=== PATIENT | male | born 1955 | race Caucasian/White ===

== ENCOUNTER 2020-02-10 19:07 | Inpatient (IN) ==
[2020-02-10 19:25] VITALS: BMI 29.0
[2020-02-10] MEDS ORDERED: NS 1000 ML 1,000 ML IV ONE (19:44)
[2020-02-10] MEDS ORDERED: SOLU-Medrol 125 MG VIAL IVP ONE (19:44)
[2020-02-10] MEDS ORDERED: NS 1000 ML 1,000 ML ONE ×2 (19:51→21:46)
[2020-02-10] MEDS ORDERED: SOLU-Medrol 125 MG VIAL ONE (20:03)
--- NOTE | 2020-02-10 20:03 | DR.URIAD ---
HPI Time Seen Time Seen by Provider: 02/10/20 19:28 PCP Primary Care Physician: LYNETTE PENG GA Complaint Chief Complaint Doctors Comments: A 64 y/o male presenting with SOB x 5-6 weeks. He states this is worsening and he is not getting good sleep. He has associated cough that is productive, chest muscle soreness from coughing, fever. He is been taking care of by the [facility] and they. had him on oral Z-Pack and steroids. He went to the ED at [facility] within this time frame and was treated on outpt. basis. He has dyspnea with mild exertion. He was tested for FLU + a CXR. Chief Complaint:: APPROX 5 WEEKS AGO, STARTED WITH A HEAD COLD, SYMPTOMS PROGRESSIVELY GETTING WORSE, AND HAS MOVED TO CHEST. PATIENT ADMITS TO LOW GRADE FEVER; PATIENT HAS BEEN ON 2 DIFFERENT ANTIBIOTICS AND STEROID PACK. CONSTANT COUGH WITH CHEST PAIN COVID-19 Coronavirus risk:travel/contact w/high risk person: No Has patient experienced Coronavirus symptoms: Yes Coronavirus symptoms experienced: Fever, Coughing and Shortness of Breath Reviewed Nurses Notes Reviewed: Yes Source History Provided: Patient Mode of Arrival Mode of Arrival: Ambulatory Timing Onset of Chief Complaint: 02/03/20 Context Recent Treated Infections: None History of Respiratory: Steroid Use Quality Quality of Cough: Productive Rhinorrhea: None Shortness of Breath: Moderate Associated Signs and Symptoms Other Signs and Symptoms: Shortness of Breath PMH PMH Past Medical History: Yes Past Medical History: Asthma, COPD and CVA Past Medical History Comment: EMPHYSEMA, CVA X 3 YEARS AGO Past Surgical History: No Family History History of Family Medical Conditions: No Social History Alcohol Use: None Do you use any recreational Drugs:: No Lives With: Alone Lives Where: Home Infectious screening In the last 2 months have you had wt loss of >10#?: NO Have you had fever, night sweats or hemotysis?: No Have you traveled outside the country in the last 6 months?: No Isolation: Standard ROS Review of Systems Constitutional: Fever Eyes: No Symptoms Reported ENTM: No Symptoms Reported Respiratoy: Productive Cough and Short of Breath Cardiovascular: No Symptoms Reported Gastrointestinal/Abdominal: No Symptoms Reported Genitourinary: No Symptoms Reported Neurological: No Symptoms Reported Musculoskeletal: No Symptoms Reported Integumentary: No Symptoms Reported Hematologic/Lymphatic: No Symptoms Reported Endocrine: No Symptoms Reported Psychiatric: No Symptoms Reported All Other Systems: Reviewed and Negative PE Vital Signs Vitals: Temperature 98.0 F Pulse Rate 77 Respiratory Rate 24 Blood Pressure 151/72 O2 Sat by Pulse Oximetry 89 General Limitations: No Limitations General Appearance: Alert and In No Apparent Distress Head Head Exam: Normal Inspection, Atraumatic and Normocephalic Eyes Eye exam: Normal Appearance and EOMI ENT ENT Exam: Normal Exam, Normal Oropharynx, Normal External Ear Exam and Mucous Membranes Moist Neck Neck Exam: Normal Inspection, Full ROM and Trachea Midline Chest Chest Inspection: Normal Inspection and Symmetric Chest Wall Rise Respiratory Respiratory Exam: Normal Lung Sounds Bilat Cardiovascular Cardiovascular Exam: Regular Rate, Normal Rhythm, Normal Heart Sounds, +S1 and +S2 Abdominal Exam Abdominal Exam: Normal Inspection, Normal Bowel Sounds and Soft Extremeties Extremities Exam: Normal Inspection and Full ROM Back Back Exam: Normal Inspection and Full ROM Neurologic Neurological Exam: Alert and Oriented X3 Psychiatric Psychiatric Exam: Normal Affect and Normal Mood Skin Skin Exam: Dry and Intact COURSE Reevaluation 1st: Unchanged Education/Counseling Education/Counseling: Patient, Education and Counseling Educated On: Treatment, Diagnosis, Prognosis and Needs for Follow Up ROR Labs Reviewed Laboratory Results Reviewed?: Yes Result Diagrams: 02/10/20 20:04 02/10/20 20:04 Laboratory: WBC 7.3 X10^3/uL (3.6-10.0) 02/10/20 20:04 RBC 5.73 X10^6/uL (4.7-6.0) 02/10/20 20:04 Hgb 15.6 g/dL (13.5-18.0) 02/10/20 20:04 Hct 45.8 % (42.0-54.0) 02/10/20 20:04 MCV 80.0 fL (80.0-100.0) 02/10/20 20:04 MCH 27.2 pg (27.0-34.0) 02/10/20 20:04 MCHC 34.0 g/dL (33.0-35.0) 02/10/20 20:04 RDW 15.3 % (11.6-16.5) 02/10/20 20:04 Plt Count 200 X10^3/uL (150.0-450.0) 02/10/20 20:04 MPV 6.9 fL (7.4-11.0) L 02/10/20 20:04 Neut % (Auto) 64.0 % (42.0-75.0) 02/10/20 20:04 Lymph % (Auto) 27.2 % (21.0-51.0) 02/10/20 20:04 [place] % (Auto) 6.4 % (0.0-13.0) 02/10/20 20:04 Eos % (Auto) 2.1 % (0.9-2.9) 02/10/20 20:04 Baso % (Auto) 0.3 % (0.2-1.0) 02/10/20 20:04 Neut # (Auto) 4.7 x10^3/uL (2.2-4.8) 02/10/20 20:04 Lymph # (Auto) 2.0 X10^3/uL (1.3-2.9) 02/10/20 20:04 [place] # (Auto) 0.5 x10^3/uL (0.3-0.8) 02/10/20 20:04 Eos # (Auto) 0.2 x10^3/uL (0.0-0.2) 02/10/20 20:04 Baso # (Auto) 0.0 X10^3/uL (0.0-0.1) 02/10/20 20:04 Absolute Nucleated RBC 0.0 /100WBC 02/10/20 20:04 Sodium 138 mmol/L (136-145) 02/10/20 20:04 Corrected Sodium TNP 02/10/20 20:04 Potassium 4.1 mmol/L (3.5-5.1) 02/10/20 20:04 Chloride 103 mmol/L (98-107) 02/10/20 20:04 Carbon Dioxide 27.8 mmol/L (21-32) 02/10/20 20:04 BUN 17 mg/dL (7-18) 02/10/20 20:04 Creatinine 1.03 mg/dL (0.70-1.30) 02/10/20 20:04 Est GFR (MDRD) Af Amer > 60 (>60) 02/10/20 20:04 Est GFR (MDRD) Non-Af > 60 (>60) 02/10/20 20:04 Glucose 108 mg/dL (65-99) H 02/10/20 20:04 Calcium 8.7 mg/dL (8.5-10.1) 02/10/20 20:04 Corrected Calcium TNP 02/10/20 20:04 Total Bilirubin 0.50 mg/dL (0.2-1.0) 02/10/20 20:04 AST 20 Units/L (15-37) 02/10/20 20:04 ALT 45 Units/L (12-78) 02/10/20 20:04 Alkaline Phosphatase 81 Units/L (46-116) 02/10/20 20:04 Total Protein 6.9 g/dL (6.4-8.2) 02/10/20 20:04 Albumin 3.8 g/dL (3.4-5.0) 02/10/20 20:04 Globulin 3.1 g/dL (2.5-4.5) 02/10/20 20:04 Albumin/Globulin Ratio 1.2 Ratio (1.1-2.1) 02/10/20 20:04 Influenza Type A (PCR) Negative (NEGATIVE) 02/10/20 20:14 Influenza Type B (PCR) Negative (NEGATIVE) 02/10/20 20:14 Opioid Opioid Risk Tool Total: 0 Total Score Risk Category: Low Risk Copyright: Gutierrez THOMPSON predicting aberrant behaviors Diagnosis Discharge Problem: COPD with acute exacerbation Pneumonia Qualifiers: Pneumonia type: due to unspecified organism Laterality: right Lung location: lower lobe of lung Qualified Code(s): J18.9 - Pneumonia, unspecified organism Instructions Forms: Excuse From Work Precautions for COVID19 Patient Portal Social Distancing ADDITIONAL NOTES Additional Notes Additional Notes: [id number] 1955 Sex: M Location: ER Order Number(s): [id number] Procedure(s):CHEST, 1 VIEW Ordering Physician: CANDE VELAZQUEZ Primary Care: Douglas Connelly Service Date: 02/10/20 Service Time: 1927 HISTORY DYSPNEA STUDY CHEST, 1 VIEW COMPARISON None FINDINGS There is reticular opacity of the right lung base. The right upper lung and left lung are essentially clear. No significant pleural effusion or pneumothorax. Emphysematous changes of the upper lobes are noted. The heart size is normal. IMPRESSION Right basilar reticular opacities suggesting infiltrate versus atelectasis. Emphysema. Electronically signed by: ANNMARIE JACOBSON (Feb 10, 2020 20:05:53)
--- NOTE | 2020-02-10 20:07 | RAD ---
HISTORYDYSPNEASTUDYCHEST, 1 VIEWCOMPARISONNoneFINDINGSThere is reticular opacity of the right lung base. The right upper lung and left lung are essentially clear. No significant pleural effusion or pneumothorax. Emphysematous changes of the upper lobes are noted. The heart size is normal.IMPRESSIONRight basilar reticular opacities suggesting infiltrate versus atelectasis.Emphysema.Electronically signed by: ANNMARIE JACOBSON (Feb 10, 2020 20:05:53)
[2020-02-10 20:15] LABS: BASOPHILS % (AUTO) 0.3 % (0.2-1.0); EOSINOPHILS # (AUTO) 0.2 x10^3/uL (0.0-0.2); EOSINOPHILS % (AUTO) 2.1 % (0.9-2.9); HEMATOCRIT 45.8 % (42.0-54.0); HEMOGLOBIN 15.6 g/dL (13.5-18.0); LYMPHOCYTES % (AUTO) 27.2 % (21.0-51.0); MEAN CORPUSCULAR HEMOGLOBIN 27.2 pg (27.0-34.0); MEAN PLATELET VOLUME 6.9 fL (7.4-11.0); MONOCYTES # (AUTO) 0.5 x10^3/uL (0.3-0.8); MONOCYTES % (AUTO) 6.4 % (0.0-13.0); NEUTROPHILS # (AUTO) 4.7 x10^3/uL (2.2-4.8); PLATELET COUNT 200 X10^3/uL (150.0-450.0); RED BLOOD COUNT 5.73 X10^6/uL (4.7-6.0); RED CELL DISTRIBUTION WIDTH 15.3 % (11.6-16.5); WHITE BLOOD COUNT 7.3 X10^3/uL (3.6-10.0)
[2020-02-10 20:25] LABS: ALANINE AMINOTRANSFERASE 45 Units/L (12-78); ALBUMIN 3.8 g/dL (3.4-5.0); ALKALINE PHOSPHATASE 81 Units/L (46-116); ASPARTATE AMINO TRANSFERASE 20 Units/L (15-37); BLOOD UREA NITROGEN 17 mg/dL (7-18); CALCIUM 8.7 mg/dL (8.5-10.1); CARBON DIOXIDE 27.8 mmol/L (21-32); CHLORIDE 103 mmol/L (98-107); CREATININE 1.03 mg/dL (0.70-1.30); SODIUM 138 mmol/L (136-145); TOTAL PROTEIN 6.9 g/dL (6.4-8.2); eGFR NON BLACK RACES > 60 (>60)
[2020-02-10] MEDS ORDERED: TORADOL 30 MG VIAL IVP ONE (20:48)
[2020-02-10] MEDS ORDERED: TORADOL 30 MG VIAL ONE (20:50)
[2020-02-10] MEDS ORDERED: LEVAQUIN PREMIX IV 750 MG 750 MG/150 ML BAG IV ONE ×2 (21:31→21:47)
[2020-02-10] MEDS ORDERED: PATIENT'S HOME MEDICATION (Ranitidine Hcl 300 MG) PO SCH (22:15)
[2020-02-10] MEDS ORDERED: PROVENTIL NEB TX 0.083% 2.5MG/ 3ML IN PRN (23:01)
[2020-02-10] MEDS ORDERED: VENTOLIN or PROAIR HFA ONE (23:15)
[2020-02-10] MEDS: DESYREL PO SCH (23:30)
[2020-02-10] MEDS: ZANTAC PO SCH (23:30)
[2020-02-10] MEDS: FLOMAX PO SCH (23:30)
[2020-02-10] MEDS: NS 1000 ML 1,000 ML IV SCH (23:30)
[2020-02-11] MEDS ORDERED: PROVENTIL NEB TX 0.083% 2.5MG/ 3ML NEB SCH (01:00)
[2020-02-11 05:47] LABS: BASOPHILS % (AUTO) 0.3 % (0.2-1.0); HEMATOCRIT 43.1 % (42.0-54.0); HEMOGLOBIN 14.5 g/dL (13.5-18.0); LYMPHOCYTES % (AUTO) 15.4 % (21.0-51.0); MEAN CORPUSCULAR HEMOGLOBIN 27.3 pg (27.0-34.0); MEAN CORPUSCULAR HGB CONC 33.7 g/dL (33.0-35.0); MEAN CORPUSCULAR VOLUME 80.9 fL (80.0-100.0); MEAN PLATELET VOLUME 7.8 fL (7.4-11.0); MONOCYTES # (AUTO) 0.1 x10^3/uL (0.3-0.8); MONOCYTES % (AUTO) 0.9 % (0.0-13.0); NEUTROPHILS # (AUTO) 5.4 x10^3/uL (2.2-4.8); NEUTROPHILS % (AUTO) 83.4 % (42.0-75.0); PLATELET COUNT 178 X10^3/uL (150.0-450.0); RED BLOOD COUNT 5.32 X10^6/uL (4.7-6.0); RED CELL DISTRIBUTION WIDTH 15.2 % (11.6-16.5); WHITE BLOOD COUNT 6.5 X10^3/uL (3.6-10.0)
[2020-02-11 05:52] LABS: ALANINE AMINOTRANSFERASE 36 Units/L (12-78); ALBUMIN 3.2 g/dL (3.4-5.0); ALKALINE PHOSPHATASE 75 Units/L (46-116); ASPARTATE AMINO TRANSFERASE 11 Units/L (15-37); BLOOD UREA NITROGEN 17 mg/dL (7-18); CALCIUM 8.5 mg/dL (8.5-10.1); CARBON DIOXIDE 24.3 mmol/L (21-32); CHLORIDE 104 mmol/L (98-107); COR CA(FOR HYPOALB) 9.1 mg/dL (8.5-10.1); COR NA(FOR HYPERGLY) 141 mmol/L (136-145); CREATININE 1.16 mg/dL (0.70-1.30); SODIUM 137 mmol/L (136-145); eGFR NON BLACK RACES > 60 (>60)
[2020-02-11 06:04] LABS: TOTAL PROTEIN 6.2 g/dL (6.4-8.2)
[2020-02-11] MEDS ORDERED: MORPHINE SULFATE INJ 4 MG IVP ONE (08:42)
[2020-02-11] MEDS ORDERED: PROVENTIL NEB TX 0.083% 2.5MG/ 3ML IN PRN (09:00)
[2020-02-11] MEDS ORDERED: PULMICORT NEB TX 0.5 MG NEB SCH (09:00)
[2020-02-11] MEDS ORDERED: LEVAQUIN PREMIX IV 750 MG 750 MG/150 ML BAG IV SCH (09:00)
--- NOTE | 2020-02-11 09:29 | DR.H&P ---
H&P History & Physical for Day of: H&P Date: 02/11/20 Chief Complaint Chief Complaint: Shortness of breath Allergies Allergies Allergy/AdvReac Type Severity Reaction Status Date / Time codeine Allergy Verified 02/10/20 19:25 History of Present Illness History of Present Illness: Pt is a 64 yo m pmhx HTN, Afib, COPD, presenting with shortness of breath that started 5-6 weeks ago and has progressively been worsening. He reports fevers, chills, productive cough. 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 He does use nebulizer at home and has oxygen that he takes intermittently for shortness of breath up to 4L. He was treated at [facility] with Z-pack and steroids. When sx did not resolve he went to ED at [facility] and was prescribed Cefdinir. VS 154/76, P 76, RR 20, 98F, O2 97% on 2L nc. Labs/Imaging: CXR:Right basilar reticular opacities suggesting infiltrate versus atelectasis. Emphysema. Wbc 6.5, Hgb 14.5, Plt 178, Na 141, K 4.4, Cl 104, HCO3 24, Cr 1.16, Gluc 282, CRP 0.5, D-dimer <100, Ferritin 27. Flu negative, Bloodcx/Covid pending. Pt was given Levaquin, will change patient to Rocephin and Doxycyline. Continue pneumonia protocol, albuterol inh, supplemental oxygen, IV solumedrol. Will continue to monitor and follow up labs in the morning. Past Medical History Past Medical History: Asthma, COPD and CVA Family History Family Medical History: Cancer, [place] and Coronary Artery Disease Social History Does patient currently use any type of tobacco product: No Have you used tobacco products in the last 12 months: No Type of Tobacco Use: None How many years tobacco product used: 30 Does any household member use tobacco: No Alcohol Use: None Drug Use: None Medications Home Medications: codeine Allergy (Verified 02/10/20 19:25) CONTINUE taking the following medications apixaban 5 mg PO BID 02/10/20 [History] buspirone 10 mg PO BID 02/10/20 [History] cefdinir 300 mg PO BID 02/10/20 [History] diclofenac sodium [Diclo Gel] 4 g TOPICAL BID 02/10/20 [History] oxycodone [OxyContin] 5 mg PO BID 02/10/20 [History] pantoprazole 40 mg PO QAM 02/10/20 [History] ranitidine HCl 300 mg PO QHS 02/10/20 [History] rosuvastatin [Crestor] 20 mg PO HS 02/10/20 [History] tamsulosin 0.4 mg PO QHS 02/10/20 [History] trazodone 50 mg PO QHS 02/10/20 [History] Labs Result Diagrams: 02/11/20 04:54 02/11/20 04:54 Labs: Laboratory WBC 6.5 X10^3/uL (3.6-10.0) 02/11/20 04:54 RBC 5.32 X10^6/uL (4.7-6.0) 02/11/20 04:54 Hgb 14.5 g/dL (13.5-18.0) 02/11/20 04:54 Hct 43.1 % (42.0-54.0) 02/11/20 04:54 MCV 80.9 fL (80.0-100.0) 02/11/20 04:54 MCH 27.3 pg (27.0-34.0) 02/11/20 04:54 MCHC 33.7 g/dL (33.0-35.0) 02/11/20 04:54 RDW 15.2 % (11.6-16.5) 02/11/20 04:54 Plt Count 178 X10^3/uL (150.0-450.0) 02/11/20 04:54 MPV 7.8 fL (7.4-11.0) 02/11/20 04:54 Neut % (Auto) 83.4 % (42.0-75.0) H 02/11/20 04:54 Lymph % (Auto) 15.4 % (21.0-51.0) L 02/11/20 04:54 [place] % (Auto) 0.9 % (0.0-13.0) 02/11/20 04:54 Eos % (Auto) 0.0 % (0.9-2.9) L 02/11/20 04:54 Baso % (Auto) 0.3 % (0.2-1.0) 02/11/20 04:54 Neut # (Auto) 5.4 x10^3/uL (2.2-4.8) H 02/11/20 04:54 Lymph # (Auto) 1.0 X10^3/uL (1.3-2.9) L 02/11/20 04:54 [place] # (Auto) 0.1 x10^3/uL (0.3-0.8) L 02/11/20 04:54 Eos # (Auto) 0.0 x10^3/uL (0.0-0.2) 02/11/20 04:54 Baso # (Auto) 0.0 X10^3/uL (0.0-0.1) 02/11/20 04:54 Absolute Nucleated RBC 0.0 /100WBC 02/11/20 04:54 D-Dimer < 100 ng/mL (0-400) 02/11/20 04:54 Sodium 137 mmol/L (136-145) 02/11/20 04:54 Corrected Sodium 141 mmol/L (136-145) 02/11/20 04:54 Potassium 4.4 mmol/L (3.5-5.1) 02/11/20 04:54 Chloride 104 mmol/L (98-107) 02/11/20 04:54 Carbon Dioxide 24.3 mmol/L (21-32) 02/11/20 04:54 BUN 17 mg/dL (7-18) 02/11/20 04:54 Creatinine 1.16 mg/dL (0.70-1.30) 02/11/20 04:54 Est GFR (MDRD) Af Amer > 60 (>60) 02/11/20 04:54 Est GFR (MDRD) Non-Af > 60 (>60) 02/11/20 04:54 Glucose 282 mg/dL (65-99) H 02/11/20 04:54 Calcium 8.5 mg/dL (8.5-10.1) 02/11/20 04:54 Corrected Calcium 9.1 mg/dL (8.5-10.1) 02/11/20 04:54 Ferritin 27 ng/mL (26-388) 02/11/20 04:54 Total Bilirubin 0.30 mg/dL (0.2-1.0) 02/11/20 04:54 AST 11 Units/L (15-37) L 02/11/20 04:54 ALT 36 Units/L (12-78) 02/11/20 04:54 Alkaline Phosphatase 75 Units/L (46-116) 02/11/20 04:54 C-Reactive Protein 0.50 mg/L (0-3.0) 02/11/20 04:54 Total Protein 6.2 g/dL (6.4-8.2) L 02/11/20 04:54 Albumin 3.2 g/dL (3.4-5.0) L 02/11/20 04:54 Globulin 3.0 g/dL (2.5-4.5) 02/11/20 04:54 Albumin/Globulin Ratio 1.1 Ratio (1.1-2.1) 02/11/20 04:54 Influenza Type A (PCR) Negative (NEGATIVE) 02/10/20 20:14 Influenza Type B (PCR) Negative (NEGATIVE) 02/10/20 20:14 Review of Systems Constitutional: Fever and Chills Eyes: No Symptoms Reported ENT: No Symptoms Reported Respiratory: Cough, Shortness of Breath and Sputum Cardiovascular: No Symptoms Reported Gastrointestinal: No Symptoms Reported Genitourinary: No Symptoms Reported Musculoskeletal: No Symptoms Reported Skin: No Symptoms Reported Neurological: No Symptoms Reported Physical Exam Vital Signs: Temperature 98.1 F Pulse Rate [Left Brachial] 81 Pulse Rate 89 Respiratory Rate 20 Blood Pressure [Left Arm] 139/65 Blood Pressure 151/72 O2 Sat by Pulse Oximetry 96 Oriented: Normal Eyes: Normal Ear: Normal Nose: Normal Throat: Normal Respiratory: Diminished Throughout and Wheezes Throughout Cardiovascular: Normal : Normal Auscultation: Bowel Sounds: Normal Palpation: Normal Tenderness: Normal Skin: Normal Musculoskeletal: Normal Mood Description: Calm Speech Pattern: Clear Assessment/Plan (1) COPD with acute exacerbation: Status: Acute Plan: IV steroids and antibiotics. Supplemental O2 RT, albuterol inh (2) Pneumonia: Qualifiers: Laterality: right Lung location: lower lobe of lung Pneumonia type: due to unspecified organism Qualified Code(s): J18.9 - Pneumonia, unspecified organism Status: Acute Plan: IV abx Review H&P Reviewed: Yes Patient was examined?: Yes
[2020-02-11] MEDS: ROCEPHIN VIAL 1 GRAM 1 G in NS 100 ML IV + SPIKE MINIBAG* 100 ML IV SCH ×2 (09:33→09:34)
[2020-02-11] MEDS: ROBITUSSIN DM PO SCH ×4 (09:34→21:45)
[2020-02-11] MEDS: SOLU-Medrol 40 MG VIAL IVP SCH ×2 (09:34→21:48)
[2020-02-11] MEDS: VIBRAMYCIN PO SCH ×2 (09:34→21:45)
[2020-02-11] MEDS: VSL#3 PO SCH (09:34)
[2020-02-11] MEDS: PROTONIX TAB 40 MG PO SCH (09:35)
[2020-02-11] MEDS: OxyCONTIN CR 10 MG 12-HR PO SCH ×2 (09:35→21:40)
[2020-02-11] MEDS: BUSPAR PO SCH ×2 (09:36→21:35)
[2020-02-11] MEDS: ELIQUIS PO SCH ×2 (09:36→21:40)
[2020-02-11] MEDS: TESSALON PERLES PO PRN (11:14)
[2020-02-11] MEDS: NS 1000 ML 1,000 ML IV SCH ×3 (14:18→23:00)
[2020-02-11] MEDS: MORPHINE SULFATE INJ 2 MG INJ IVP PRN ×2 (14:18→21:40)
[2020-02-11] MEDS ORDERED: AMBIEN PO PRN (20:03)
[2020-02-11] MEDS ORDERED: DESYREL PO SCH (21:00)
[2020-02-11] MEDS ORDERED: CRESTOR TAB 10 MG PO SCH (21:00)
[2020-02-11] MEDS: DESYREL PO SCH (21:40)
[2020-02-11] MEDS: FLOMAX PO SCH (21:45)
[2020-02-11] MEDS: ZANTAC PO SCH (21:48)
[2020-02-12] MEDS: MORPHINE SULFATE INJ 2 MG INJ IVP PRN ×2 (04:30→09:34)
[2020-02-12 04:34] VITALS: BP 134/74
[2020-02-12 05:49] LABS: BASOPHILS # (AUTO) 0.1 X10^3/uL (0.0-0.1); BASOPHILS % (AUTO) 0.5 % (0.2-1.0); HEMATOCRIT 42.2 % (42.0-54.0); HEMOGLOBIN 14.1 g/dL (13.5-18.0); LYMPHOCYTES # (AUTO) 1.7 X10^3/uL (1.3-2.9); MEAN CORPUSCULAR HEMOGLOBIN 27.4 pg (27.0-34.0); MEAN CORPUSCULAR HGB CONC 33.4 g/dL (33.0-35.0); MEAN CORPUSCULAR VOLUME 82.2 fL (80.0-100.0); MEAN PLATELET VOLUME 8.9 fL (7.4-11.0); MONOCYTES # (AUTO) 0.3 x10^3/uL (0.3-0.8); MONOCYTES % (AUTO) 2.2 % (0.0-13.0); NEUTROPHILS % (AUTO) 86.3 % (42.0-75.0); PLATELET COUNT 172 X10^3/uL (150.0-450.0); RED BLOOD COUNT 5.13 X10^6/uL (4.7-6.0); RED CELL DISTRIBUTION WIDTH 15.4 % (11.6-16.5); WHITE BLOOD COUNT 15.1 X10^3/uL (3.6-10.0)
[2020-02-12 05:51] LABS: BLOOD UREA NITROGEN 13 mg/dL (7-18); CALCIUM 8.2 mg/dL (8.5-10.1); CARBON DIOXIDE 25.8 mmol/L (21-32); CHLORIDE 106 mmol/L (98-107); COR NA(FOR HYPERGLY) 141 mmol/L (136-145); CREATININE 1.03 mg/dL (0.70-1.30); SODIUM 138 mmol/L (136-145); eGFR NON BLACK RACES > 60 (>60)
[2020-02-12 06:12] LABS: PLATELET MORPHOLOGY COMMENT NORMAL (NORMAL)
--- NOTE | 2020-02-12 06:29 | RAD ---
HISTORYFollow-up pneumonia, COPDSTUDYCHEST, 1 [id number]/2020FINDINGSThe heart is within normal limits in size. The anna are normal. The lungs are mildly hyperinflated. Previously noted right basal infiltrate has resolved. The remainder of the lung [place] are also clear. No pleural effusions are identified. Bony thorax is unremarkable.IMPRESSIONLungs hyperinflated and now clearElectronically signed by: ODILON HULL (Feb 12, 2020 06:28:32)
--- NOTE | 2020-02-12 08:13 | W.DIS.FURT ---
Summary of Discharge Discharge Summary of Date Date of Exam: 02/12/20 Admission Date Date of Admission: 02/10/20 Admission Diagnosis Patient Problems (Updated 02/10/20 @ 21:34 by CANDE VELAZQUEZ) Pneumonia (Acute) J18.9 COPD with acute exacerbation (Acute) J44.1 Hospital Course: Pt is a 64 yo m pmhx HTN, Afib, COPD, admitted for COPD exacerbation after having worsening shortness of breath for 5-6 weeks. Hospital course involved supplemental oxygen, IV solumedrol, and Doxycycline. He reports using a nebulizer at home and has home oxygen that he uses intermittently for shortness of breath up to 4L. His symptoms had significantly improved on day of discharge and he was able to ambulate without oxygen w/ O2sat of 93%. CXR lungs hyperinflated otherwise clear. Bloodcx NGTD. Pt rx prednisone, Doxycycline, Duoneb vials, and instructed to use home O2 prn. Pt stable on discharge w/ instructions to follow up w/ pcp in 1 week. Vital Signs: Vital Signs (72 hours) 02/10/20 19:18 02/10/20 21:00 02/10/20 22:30 Temperature 98.0 F 98.4 F Pulse Rate 77 Pulse Rate [Left Brachial] 84 Respiratory Rate 24 24 24 Blood Pressure 151/72 Blood Pressure [Left Arm] 144/80 O2 Sat by Pulse Oximetry 89 L 94 L 02/10/20 22:32 02/10/20 23:00 02/10/20 23:46 Temperature Pulse Rate 89 89 Pulse Rate [Left Brachial] 91 H Respiratory Rate 24 20 Blood Pressure 151/72 Blood Pressure [Left Arm] O2 Sat by Pulse Oximetry 87 L 94 L 94 L 02/11/20 00:00 02/11/20 04:00 02/11/20 08:00 Temperature 98.9 F 98.1 F 98.1 F Pulse Rate Pulse Rate [Left Brachial] 79 76 81 Respiratory Rate 20 20 20 Blood Pressure Blood Pressure [Left Arm] 150/78 154/76 139/65 O2 Sat by Pulse Oximetry 97 97 96 02/11/20 09:05 02/11/20 09:35 02/11/20 09:36 Temperature Pulse Rate 84 Pulse Rate [Left Brachial] Respiratory Rate 20 20 Blood Pressure Blood Pressure [Left Arm] O2 Sat by Pulse Oximetry 96 02/11/20 10:06 02/11/20 10:35 02/11/20 12:00 Temperature 98.1 F Pulse Rate Pulse Rate [Left Brachial] 74 Respiratory Rate 20 20 20 Blood Pressure Blood Pressure [Left Arm] 137/76 O2 Sat by Pulse Oximetry 96 02/11/20 14:18 02/11/20 14:48 02/11/20 15:47 Temperature 98.1 F Pulse Rate Pulse Rate [Left Brachial] 91 H Respiratory Rate 22 22 21 Blood Pressure Blood Pressure [Left Arm] 145/73 O2 Sat by Pulse Oximetry 97 02/11/20 20:00 02/11/20 21:40 02/11/20 22:10 Temperature 98.5 F Pulse Rate Pulse Rate [Left Brachial] 78 Respiratory Rate 24 20 21 Blood Pressure Blood Pressure [Left Arm] 150/88 O2 Sat by Pulse Oximetry 97 02/11/20 22:40 02/12/20 00:00 02/12/20 04:00 Temperature 98.1 F 98.4 F Pulse Rate Pulse Rate [Left Brachial] 76 82 Respiratory Rate 21 20 22 Blood Pressure Blood Pressure [Left Arm] 148/72 134/74 O2 Sat by Pulse Oximetry 97 98 02/12/20 04:30 Temperature Pulse Rate Pulse Rate [Left Brachial] Respiratory Rate 20 Blood Pressure Blood Pressure [Left Arm] O2 Sat by Pulse Oximetry Labs: Laboratory Last Values WBC 15.1 X10^3/uL (3.6-10.0) H D 02/12/20 04:19 RBC 5.13 X10^6/uL (4.7-6.0) 02/12/20 04:19 Hgb 14.1 g/dL (13.5-18.0) 02/12/20 04:19 Hct 42.2 % (42.0-54.0) 02/12/20 04:19 MCV 82.2 fL (80.0-100.0) 02/12/20 04:19 MCH 27.4 pg (27.0-34.0) 02/12/20 04:19 MCHC 33.4 g/dL (33.0-35.0) 02/12/20 04:19 RDW 15.4 % (11.6-16.5) 02/12/20 04:19 Plt Count 172 X10^3/uL (150.0-450.0) 02/12/20 04:19 Plt Count Comment Adequate (ADEQUATE) 02/12/20 04:19 MPV 8.9 fL (7.4-11.0) 02/12/20 04:19 Neut % (Auto) 86.3 % (42.0-75.0) H 02/12/20 04:19 Lymph % (Auto) 11.0 % (21.0-51.0) L 02/12/20 04:19 [place] % (Auto) 2.2 % (0.0-13.0) 02/12/20 04:19 Eos % (Auto) 0.0 % (0.9-2.9) L 02/12/20 04:19 Baso % (Auto) 0.5 % (0.2-1.0) 02/12/20 04:19 Neut # (Auto) 13.0 x10^3/uL (2.2-4.8) H 02/12/20 04:19 Lymph # (Auto) 1.7 X10^3/uL (1.3-2.9) 02/12/20 04:19 [place] # (Auto) 0.3 x10^3/uL (0.3-0.8) 02/12/20 04:19 Eos # (Auto) 0.0 x10^3/uL (0.0-0.2) 02/12/20 04:19 Baso # (Auto) 0.1 X10^3/uL (0.0-0.1) 02/12/20 04:19 Absolute Nucleated RBC 0.1 /100WBC 02/12/20 04:19 Plt Morphology Comment Normal (NORMAL) 02/12/20 04:19 RBC Morphology Normal (NORMAL) 02/12/20 04:19 D-Dimer < 100 ng/mL (0-400) 02/11/20 04:54 Sodium 138 mmol/L (136-145) 02/12/20 04:19 Corrected Sodium 141 mmol/L (136-145) 02/12/20 04:19 Potassium 4.4 mmol/L (3.5-5.1) 02/12/20 04:19 Chloride 106 mmol/L (98-107) 02/12/20 04:19 Carbon Dioxide 25.8 mmol/L (21-32) 02/12/20 04:19 BUN 13 mg/dL (7-18) 02/12/20 04:19 Creatinine 1.03 mg/dL (0.70-1.30) 02/12/20 04:19 Est GFR (MDRD) Af Amer > 60 (>60) 02/12/20 04:19 Est GFR (MDRD) Non-Af > 60 (>60) 02/12/20 04:19 Glucose 244 mg/dL (65-99) H 02/12/20 04:19 Calcium 8.2 mg/dL (8.5-10.1) L 02/12/20 04:19 Corrected Calcium 9.1 mg/dL (8.5-10.1) 02/11/20 04:54 Ferritin 27 ng/mL (26-388) 02/11/20 04:54 Total Bilirubin 0.30 mg/dL (0.2-1.0) 02/11/20 04:54 AST 11 Units/L (15-37) L 02/11/20 04:54 ALT 36 Units/L (12-78) 02/11/20 04:54 Alkaline Phosphatase 75 Units/L (46-116) 02/11/20 04:54 C-Reactive Protein 0.50 mg/L (0-3.0) 02/11/20 04:54 Total Protein 6.2 g/dL (6.4-8.2) L 02/11/20 04:54 Albumin 3.2 g/dL (3.4-5.0) L 02/11/20 04:54 Globulin 3.0 g/dL (2.5-4.5) 02/11/20 04:54 Albumin/Globulin Ratio 1.1 Ratio (1.1-2.1) 02/11/20 04:54 Influenza Type A (PCR) Negative (NEGATIVE) 02/10/20 20:14 Influenza Type B (PCR) Negative (NEGATIVE) 02/10/20 20:14 Reason For Visit: RLL PNEUMONIA,COPD EXACERBATION,OLD CVA Discharge Date Discharge Date: 02/12/20 Discharge Diagnosis All Active Problems (Updated 02/10/20 @ 21:34 by CANDE VELAZQUEZ) Pneumonia (Acute) COPD with acute exacerbation (Acute) Plan of Treatment: Continue with present treatment and follow up plan. Pt is to keep follow up appointment as instructed and take medications as ordered. Discharge Medications Discharge Medications: codeine Allergy (Verified 02/10/20 19:25) CONTINUE taking the following medications apixaban [Eliquis] 5 mg PO BID 02/10/20 [History] buspirone 10 mg PO BID 02/10/20 [History] oxycodone [OxyContin] 5 mg PO BID PRN 02/10/20 [History] pantoprazole 40 mg PO QAM 02/10/20 [History] ranitidine HCl 300 mg PO QHS 02/10/20 [History] rosuvastatin [Crestor] 20 mg PO HS 02/10/20 [History] tamsulosin 0.4 mg PO QHS 02/10/20 [History] trazodone 50 mg PO QHS 02/10/20 [History] New Prescriptions benzonatate 100 mg PO TID PRN 10 Days #30 cap 02/12/20 [Rx] doxycycline hyclate 100 mg PO BID 5 Days #10 cap 02/12/20 [Rx] ipratropium-albuterol 3 ml IN Q4-6H PRN 30 Days #90 ml 02/12/20 [Rx] prednisone 40 mg PO DAILY 5 Days #10 tab 02/12/20 [Rx] Follow up and Referral Follow Up: 1 Week Discharge Disposition Discharge Disposition: Home Discharge Condition: Stable
[2020-02-12] MEDS: SOLU-Medrol 40 MG VIAL IVP SCH (09:17)
[2020-02-12] MEDS: OxyCONTIN CR 10 MG 12-HR PO SCH (09:17)
[2020-02-12] MEDS: VIBRAMYCIN PO SCH (09:18)
[2020-02-12] MEDS: VSL#3 PO SCH (09:18)
[2020-02-12] MEDS: PROTONIX TAB 40 MG PO SCH (09:18)
[2020-02-12] MEDS: TESSALON PERLES PO PRN (09:18)
[2020-02-12] MEDS: BUSPAR PO SCH (09:19)
[2020-02-12] MEDS: ROCEPHIN VIAL 1 GRAM 1 G in NS 100 ML IV + SPIKE MINIBAG* 100 ML IV SCH (09:19)
[2020-02-12] MEDS: ROBITUSSIN DM PO SCH (09:20)
[2020-02-12] MEDS: ELIQUIS PO SCH (09:20)
== END 2020-02-12 10:30 | disposition home or self-care (01) | DRG 194 ==
LOC: ER 19:16 → MED/SURG 21:36
PROVIDERS: ADMIT Family Medicine; ATTEND Family Medicine
DX: J18.9 Pneumonia, unspecified organism; Z11.59 Encounter for screening for other viral diseases; R06.02 Shortness of breath; I48.91 Unspecified atrial fibrillation; Z86.73 Personal history of transient ischemic attack (TIA), and cerebral infarction without residual deficits; I10 Essential (primary) hypertension; J44.1 Chronic obstructive pulmonary disease with (acute) exacerbation